=== PATIENT | male | born 1955 | race Caucasian/White ===

== ENCOUNTER 2016-08-11 14:20 | Emergency (ER) | payer SELFPAY ==
[2016-08-11] MEDS ORDERED: Ketorolac Tromethamine 60 MG/2 ML VIAL ONE (14:56)
--- NOTE | 2016-08-11 15:25 | RAD ---
LUMBAR SPINE THREE VIEWS HISTORY: Back pain. Fall. FINDINGS/IMPRESSION: Comparison is made with the exam of 05/31/2014. Degenerative changes are again seen. No fracture or subluxation is identified. POS: [facility]
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
== END 2016-08-11 15:26 | disposition home or self-care (01) ==
LOC: NAV ERS 14:20
DX: S39.012A Strain of muscle, fascia and tendon of lower back, initial encounter (principal); Z89.029 Acquired absence of unspecified finger(s); W19.XXXA Unspecified fall, initial encounter
CPT/HCPCS: 72100; 96372; J1885

== ENCOUNTER 2017-11-25 15:52 | Emergency (ER) | payer SELFPAY ==
[2017-11-25] MEDS ORDERED: Ibuprofen 800 MG TAB ONE (16:03)
== END 2017-11-25 16:18 | disposition home or self-care (01) ==
LOC: NAV ERS 15:52
DX: S43.51XA Sprain of right acromioclavicular joint, initial encounter (principal); I10 Essential (primary) hypertension; W51.XXXA Accidental striking against or bumped into by another person, initial encounter
CPT/HCPCS: 99283

== ENCOUNTER 2020-04-09 16:06 | Emergency (ER) | payer SELFPAY ==
[2020-04-09] MEDS ORDERED: Ketorolac Tromethamine 60 MG/2 ML VIAL ONE (16:32)
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
== END 2020-04-09 17:35 | disposition home or self-care (01) ==
LOC: NAV ERS 16:06
DX: M54.5 Low back pain (principal)
CPT/HCPCS: 72100; 96372; J1885